=== PATIENT | born 2005 | race Caucasian/White ===

== ENCOUNTER 2025-05-18 14:36 | Outpatient (CLI) | payer BC, SELFPAY ==
[2025-05-18 15:27] LABS: Hematocrit 36.0 % (37.0-52.0); Hemoglobin 11.9 g/dL (12.0-18.0); Immature Granulocyte Percent A 0.2 % (0-0.5); Lymphocytes Absolute Auto 1.72 K/mm3 (0.9-3.2); Mean Corpuscular HGB Conc 33.1 g/dl (32-36); Mean Corpuscular Hemoglobin 30.1 pg (26-34); Mean Corpuscular Volume 91.1 fl (80-100); Nucleated Red Blood Cells Absolute Auto 0.000 K/mm3 (0.0-0.012); Nucleated Red Blood Cells Perc 0.0 % (0.0-0.2); Platelet Count Result 190 k/mm3 (150-375); Red Blood Count 3.95 M/mm3 (4.2-6.2); White Blood Count 8.5 K/mm3 (4.5-10.0)
[2025-05-18 15:51] LABS: Iron 53 ug/dL (37-181)
[2025-05-18 16:02] LABS: Percent Iron Saturation 16 % (20-50)
[2025-05-18 16:28] LABS: Thyroid Stimulating Hormone Reflex 1.500 uIU/mL (0.465-4.68)
== END 2025-05-18 14:37 | disposition home or self-care (01) ==
LOC: ANHLAB 14:38
PROVIDERS: PCP Family Medicine; Visit Provider Obstetrics & Gynecology
DX: Z30.9 Encounter for contraceptive management, unspecified (principal)
CPT/HCPCS: 36415; 83540; 83550; 84146; 84443; 85025